=== PATIENT | female | born 1970 | race African-American/Black ===

== ENCOUNTER 2020-04-07 13:57 | Emergency (ER) | payer MEDICAID ==
[~2020-04-07] VITALS: Ht 152.4 cm; Wt 79.0 kg
[2020-04-07] MEDS ORDERED: KETOROLAC 30MG/ML VIAL IV STA (14:26)
[2020-04-07] MEDS ORDERED: ONDANSETRON HCL 4MG/2ML INJ IV STA (14:26)
[2020-04-07] MEDS ORDERED: SODIUM CHLORIDE 0.9% 1,000 ML IV ONE (14:30)
[2020-04-07 15:39] LABS: BASOPHILS % 0.3 % (0.0-2.0); EOSINOPHILS % 0.5 % (0.0-5.0); HEMATOCRIT. 36.6 % (36.0-48.0); HEMOGLOBIN. 11.4 g/dL (12.0-16.0); LYMPHOCYTES % 17.3 % (20.0-50.0); MEAN CORPUSCULAR HEMOGLOBIN 22.6 pg (28.0-32.0); MEAN CORPUSCULAR VOLUME 72.3 fL (81.0-99.0); MEAN PLATELET VOLUME 9.4 fl (7.4-10.4); MONOCYTES % 4.8 % (2.0-8.0); NEUTROPHILS % 77.1 % (40.0-76.0); PLATELET 189 x1000/uL (130-400); RED BLOOD CELL COUNT 5.06 mill/uL (4.2-5.4); RED CELL DISTRIBUTION WIDTH 15.4 % (11.6-14.6)
[2020-04-07 15:40] LABS: CLARITY URINE CLEAR (CLEAR); COLOR URINE YELLOW (YELLOW); KETONES URINE NEGATIVE (NEGATIVE); LEUKOCYTE ESTERASE URINE NEGATIVE (NEGATIVE); NITRITE URINE NEGATIVE (NEGATIVE); OCCULT BLOOD URINE TRACE (NEGATIVE); PROTEIN URINE 2+ (NEGATIVE); SPECIFIC GRAVITY URINE 1.013 (1.005-1.030); UROBILINOGEN URINE 0.2 E.U./dL (0.2-1.0)
[2020-04-07 15:50] LABS: CHLORIDE 103 mEq/L (98-107)
[2020-04-07 15:52] LABS: *AMPHETAMINES SCREEN URINE NEGATIVE (NEGATIVE); *BARBITURATES SCREEN URINE NEGATIVE (NEGATIVE); *BENZODIAZEPINES SCREEN URINE NEGATIVE (NEGATIVE)
[2020-04-07 15:53] LABS: *COCAINE SCREEN URINE NEGATIVE (NEGATIVE); CANNABINOID URINE SCREEN NEGATIVE (NEGATIVE); METHADONE URINE SCREEN NEGATIVE (NEGATIVE); OPIATES URINE SCREEN NEGATIVE (NEGATIVE); PHENCYCLIDINE URINE SCREEN NEGATIVE (NEGATIVE)
[2020-04-07 15:57] LABS: ETHANOL BLOOD < 10 mg/dL
[2020-04-07 16:02] LABS: HCG SCREEN NEGATIVE
[2020-04-07 17:47] VITALS: BP 151/80
== END 2020-04-07 17:49 | disposition home or self-care (01) ==
LOC: ER 14:08
DX: R10.9 Unspecified abdominal pain (principal); R11.2 Nausea with vomiting, unspecified
CPT/HCPCS: 36415; 80053; 80305; 80320; 81003; 83690; 84703; 85025; 93005; 96361; 96374; 96375; 99284; J1885; J2405; J7030; Z7610; G0480

== ENCOUNTER 2020-07-30 19:08 | Emergency (ER) | payer MEDICAID, OTHER ==
[~2020-07-30] VITALS: Ht 152.4 cm; Wt 84.0 kg
[2020-07-30 20:21] LABS: HEMATOCRIT. 37.5 % (36.0-48.0); MEAN CORPUSCULAR HEMOGLOBIN 22.5 pg (28.0-32.0); MEAN CORPUSCULAR VOLUME 70.3 fL (81.0-99.0); RED BLOOD CELL COUNT 5.34 mill/uL (4.2-5.4); RED CELL DISTRIBUTION WIDTH 15.7 % (11.6-14.6)
[2020-07-30 20:26] LABS: CHLORIDE 102 mEq/L (98-107)
[2020-07-30 20:27] LABS: CLARITY URINE CLOUDY (CLEAR); COLOR URINE ORANGE (YELLOW); KETONES URINE NEGATIVE (NEGATIVE); LEUKOCYTE ESTERASE URINE 1+ (NEGATIVE); NITRITE URINE POSITIVE (NEGATIVE); OCCULT BLOOD URINE 3+ (NEGATIVE); PH URINE 5.5 (4.5-8.0); PROTEIN URINE 4+ (NEGATIVE); SPECIFIC GRAVITY URINE 1.039 (1.005-1.030); UROBILINOGEN URINE 0.2 E.U./dL (0.2-1.0)
[2020-07-30 20:31] LABS: HCG SCREEN NEGATIVE
[2020-07-30] MEDS ORDERED: HALOPERIDOL LACTATE 5MG/ML VIAL IM ONE (20:45)
[2020-07-30 20:59] LABS: PLATELET ESTIMATE MARKEDLY DECREASED
[2020-07-30 21:06] LABS: MEAN PLATELET VOLUME 6.9 fl (7.4-10.4)
[2020-07-30 21:29] LABS: PLATELET 16 x1000/uL (130-400)
[2020-07-30] MEDS ORDERED: CEFTRIAXONE 1 G PREMIX 50 ML IV ONE (22:15)
[2020-07-30] MEDS ORDERED: KCL 20MEQ/100ML PREMIX 100 ML IV NR (23:00)
[2020-07-30] MEDS ORDERED: IOHEXOL-300 100 ML BOTTLE ONE (23:04)
[2020-07-31] MEDS ORDERED: MORPHINE SULFATE 4 MG/ML CPJ (NOT FOR IM USE) IV PRN (00:15)
[2020-07-31] MEDS ORDERED: MORPHINE SULFATE 10 MG/ML CPJ IV ONE (00:15)
[2020-07-31] MEDS ORDERED: LACTATED RINGERS 1,000 ML IV SCH (01:45)
[2020-07-31 03:45] VITALS: BP 146/84
== END 2020-07-31 05:03 | disposition short-term general hospital (02) ==
LOC: ER 19:08
DX: K85.90 Acute pancreatitis without necrosis or infection, unspecified (principal); D69.6 Thrombocytopenia, unspecified
CPT/HCPCS: 36415; 74177; 80048; 80076; 81003; 83605; 83690; 84703; 85025; 87040; 93005; 96361; 96365; 96366; 96367; 96372; 96375; 99291; J0696; J1630; J2270; J3480; J7120; Q9967